=== PATIENT | female | born 1990 | race Caucasian/White ===

== ENCOUNTER 2020-08-01 16:35 | Observation (INO) | payer OTHER ==
[~2020-08-01] VITALS: Ht 154.9 cm; Wt 88.9 kg
[2020-08-01] MEDS ORDERED: PRETAB PO (17:28)
[2020-08-01] MEDS ORDERED: FERR-212 PO (17:28)
[2020-08-01 17:29] VITALS: BP 111/66
== END 2020-08-01 18:00 | disposition home or self-care (01) ==
LOC: MLD 16:35
PROVIDERS: ADMIT Obstetrics & Gynecology; ATTEND Obstetrics & Gynecology
DX: O21.2 Late vomiting of pregnancy (principal); O26.893 Other specified pregnancy related conditions, third trimester; R10.9 Unspecified abdominal pain; H53.8 Other visual disturbances; Z3A.30 30 weeks gestation of pregnancy
CPT/HCPCS: 59025; 81000; G0378

== ENCOUNTER 2020-08-28 13:40 | Observation (INO) | payer OTHER ==
[~2020-08-28] VITALS: Ht 160 cm; Wt 90.7 kg
[~2020-08-28 13:40] MED LIST: FERR-212 PO; PRETAB PO
[2020-08-28] MEDS ORDERED: TERBUTALINE 1 MG/ML VIAL SUBQ SCH (14:20)
[2020-08-28] MEDS ORDERED: LACTATED RINGERS 500 ML IV SCH (14:20)
[2020-08-28] MEDS: LACTATED RINGERS 1,000 ML IV SCH ×2 (14:31→16:15)
[2020-08-28] MEDS ORDERED: BETAMETH ACET/BETAMETH NA PH 30 MG/5 ML VIAL IM SCH (14:40)
[2020-08-28] MEDS ORDERED: BETAMETH ACET/BETAMETH NA PH 30 MG/5 ML VIAL IM ONE (14:41)
[2020-08-28] MEDS ORDERED: PROMETHAZINE 25 MG/ML VIAL IM PRN (18:00)
[2020-08-28] MEDS ORDERED: NALBUPHINE 10 MG/ML AMP IVP PRN (18:00)
[2020-08-28 18:18] VITALS: BP 129/82
[2020-08-28] MEDS ORDERED: ACETAMINOPHEN 325 MG TAB PO PRN (21:05)
== END 2020-08-28 22:13 | disposition home or self-care (01) ==
LOC: MLD 13:40
PROVIDERS: ADMIT Obstetrics & Gynecology; ATTEND Obstetrics & Gynecology
DX: O47.02 False labor before 37 completed weeks of gestation, second trimester (principal); Z3A.35 35 weeks gestation of pregnancy
CPT/HCPCS: 96361; 96372; 96374; G0378; J0702; J2300; J2550; 59025

== ENCOUNTER 2020-08-29 15:41 | Observation (INO) | payer OTHER, SELFPAY ==
[~2020-08-29] VITALS: Ht 160 cm; Wt 91.2 kg
[2020-08-29 16:22] VITALS: BP 126/76
[2020-08-29] MEDS ORDERED: BETAMETH ACET/BETAMETH NA PH 30 MG/5 ML VIAL IM SCH (16:30)
== END 2020-08-29 17:15 | disposition home or self-care (01) ==
LOC: MLD 15:41
PROVIDERS: ADMIT Obstetrics & Gynecology; ATTEND Obstetrics & Gynecology
DX: O47.03 False labor before 37 completed weeks of gestation, third trimester (principal); Z3A.35 35 weeks gestation of pregnancy
CPT/HCPCS: 59025; 81000; 96372; G0378; J0702

== ENCOUNTER 2020-08-30 17:05 | Observation (INO) | payer OTHER ==
[~2020-08-30] VITALS: Ht 157.5 cm; Wt 91.6 kg
[2020-08-30 17:50] VITALS: BP 115/66
[2020-08-30] MEDS ORDERED: MORPHINE SULFATE 4 MG/ML SYR IVP PRN (19:00)
[2020-08-30] MEDS ORDERED: ONDANSETRON 4 MG/2 ML VIAL IVP PRN (19:00)
[2020-08-30] MEDS ORDERED: LACTATED RINGERS 1,000 ML IV SCH (19:00)
[2020-08-30] MEDS ORDERED: TERBUTALINE 1 MG/ML VIAL SUBQ SCH (19:05)
[2020-08-30] MEDS ORDERED: TERBUTALINE 1 MG/ML VIAL SUBQ ONE (20:05)
[2020-08-31] MEDS ORDERED: CITRIC ACID/SODIUM CITRATE 30 ML UDC ONE (00:33)
== END 2020-08-31 01:10 | disposition home or self-care (01) ==
LOC: MLD 17:05
PROVIDERS: ADMIT Obstetrics & Gynecology; ATTEND Obstetrics & Gynecology
DX: O26.893 Other specified pregnancy related conditions, third trimester (principal); R10.9 Unspecified abdominal pain; Z20.822 Contact with and (suspected) exposure to COVID-19; Z3A.36 36 weeks gestation of pregnancy
CPT/HCPCS: 59025; 76815; 81000; 87426; 96361; 96372; 96374; G0378; J2405; J3105

== ENCOUNTER 2020-09-03 23:24 | Observation (INO) | payer OTHER, SELFPAY ==
[~2020-09-03] VITALS: Ht 157.5 cm; Wt 91.6 kg
[2020-09-04] MEDS ORDERED: LACTATED RINGERS 1,000 ML IV SCH (00:40)
[2020-09-04] MEDS ORDERED: TERBUTALINE 1 MG/ML VIAL SUBQ SCH (00:40)
[2020-09-04] MEDS ORDERED: ZOLPIDEM 5 MG TAB PO SCH (00:40)
[2020-09-04] MEDS ORDERED: TERBUTALINE 1 MG/ML VIAL SUBQ ONE (00:49)
[2020-09-04] MEDS ORDERED: ZOLPIDEM 5 MG TAB ONE (00:56)
[2020-09-04] MEDS ORDERED: ACETAMINOPHEN 325 MG TAB PO PRN (01:10)
[2020-09-04] MEDS ORDERED: ACETAMINOPHEN 325 MG TAB ONE ×2 (01:11→01:12)
== END 2020-09-04 02:05 | disposition home or self-care (01) ==
LOC: MLD 23:24
PROVIDERS: ADMIT Obstetrics & Gynecology; ATTEND Obstetrics & Gynecology
DX: O26.893 Other specified pregnancy related conditions, third trimester (principal); R10.9 Unspecified abdominal pain; Z3A.36 36 weeks gestation of pregnancy
CPT/HCPCS: 59025; 96372; G0378; J3105

== ENCOUNTER 2020-09-10 10:10 | Inpatient (IN) | payer OTHER, SELFPAY ==
[~2020-09-10] VITALS: Ht 154.9 cm; Wt 97.5 kg
[2020-09-10] MEDS ORDERED: LACTATED RINGERS 1,000 ML IV SCH (10:30)
[2020-09-10] MEDS ORDERED: CARBOPROST 250 MCG/ML AMP IM PRN (10:30)
[2020-09-10] MEDS ORDERED: AMPICILLIN 2,000 MG in NACL 0.9% MINI-BAG PLUS 100 ML IV SCH (10:30)
[2020-09-10] MEDS ORDERED: METHYLERGONOVINE 0.2 MG/ML AMP IM PRN ×2 (10:30→12:45)
[2020-09-10] MEDS ORDERED: NALBUPHINE 10 MG/ML AMP IVP PRN (10:30)
[2020-09-10 11:00] VITALS: BP 135/86
[2020-09-10] MEDS ORDERED: OXYTOCIN 20 UNITS in LACTATED RINGERS 1,000 ML IV SCH (11:00)
[2020-09-10 11:26] LABS: BASOPHILS # (AUTO) 0.1 K/uL (0.00-0.22); BASOPHILS % (AUTO) 0.4 % (0.0-2.0); EOSINOPHILS # (AUTO) 0.1 K/uL (0-0.4); EOSINOPHILS % (AUTO) 0.4 % (0.0-4.0); HEMATOCRIT 35.4 % (36-48); HEMOGLOBIN 11.5 g/dL (12.0-16.0); LYMPHOCYTES # (AUTO) 2.3 K/uL (2.5-16.5); LYMPHOCYTES % (AUTO) 11.4 % (20.5-51.1); MEAN CORPUSCULAR HEMOGLOBIN 28 pg (27-31); MEAN CORPUSCULAR HGB CONC 32 g/dL (33-37); MONOCYTES # (AUTO) 0.8 K/uL (0.8-1.0); MONOCYTES % (AUTO) 3.9 % (1.7-9.3); NEUTROPHILS # (AUTO) 16.5 K/uL (1.8-7.7); NEUTROPHILS % (AUTO) 83.9 % (42.2-75.2); PLATELET COUNT (AUTO) 227 K/uL (140-450); RED BLOOD CELL COUNT(AUTO) 4.16 MIL/uL (4.20-5.40); RED CELL DISTRIBUTION WIDTH 14.5 % (11.6-13.7); WHITE BLOOD COUNT (AUTO) 19.7 K/uL (4.8-10.8)
[2020-09-10 11:44] LABS: APPEARANCE,URINE CLOUDY (CLEAR); BILIRUBIN,URINE NEGATIVE (NEGATIVE); BLOOD, URINE TRACE-I (NEGATIVE); COLOR,URINE YELLOW (YELLOW); LEUKOCYTE ESTERASE ,URINE 1+ (NEGATIVE); NITRITE, URINE POSITIVE (NEGATIVE); UGLUCOSE NEGATIVE (NEGATIVE)
[2020-09-10] MEDS ORDERED: AMPICILLIN 2,000 MG VIAL ONE (12:07)
[2020-09-10] MEDS ORDERED: OXYTOCIN 20 UNITS/LR PREMIX 1,000 ML IV ONE (12:27)
[2020-09-10] MEDS ORDERED: BENZOCAINE/MENTHOL 20%-0.5% 60 GM CAN TP PRN (12:45)
[2020-09-10] MEDS ORDERED: OXYTOCIN 10 UNITS/ML VIAL IM PRN (12:45)
[2020-09-10] MEDS ORDERED: oxyCODONE/APAP 5/325 MG 1 TAB TAB PO PRN ×2 (12:45)
[2020-09-10] MEDS ORDERED: IBUPROFEN 800 MG TAB PO PRN (12:45)
[2020-09-10] MEDS ORDERED: METHYLERGONOVINE 0.2 MG TAB PO PRN (12:45)
[2020-09-10] MEDS ORDERED: TEMAZEPAM 15 MG CAP PO PRN (12:45)
[2020-09-10 12:54] LABS: RBC,URINE 0-5 /HPF (0-5)
[2020-09-10 12:55] LABS: URINE AMORPHOUS URATE 1+ /HPF (None Seen)
[2020-09-10 13:14] LABS: BARBITURATE, URINE NEGATIVE ng/ml (NEG <=200); BENZODIAZEPINE, URINE NEGATIVE ng/mL (NEG <=200); CANNABINOID, URINE NEGATIVE ng/mL (NEG <=50); COCAINE, URINE NEGATIVE ng/mL (NEG <=300); OPIATE, URINE NEGATIVE ng/mL (NEG <=2000); PHENCYCLIDINE SCREEN,URINE NEGATIVE ng/mL (NEG <=25)
[2020-09-10] MEDS ORDERED: DOCUSATE SOD/SENNA 50/8.6 MG 1 TAB PO SCH (21:00)
[2020-09-11 05:21] LABS: HEMATOCRIT 32.3 % (36-48); HEMOGLOBIN 10.6 g/dL (12.0-16.0)
--- NOTE | 2020-09-11 07:21 | NUR ---
PATIENT HAS BEEN SCREENED AND CATEGORIZED LOW NUTRITION RISK. PATIENT WILL BE SEEN WITHIN 7 DAYS OF ADMISSION. 09/17/20 XOCHILT GASCA MS, RDN
[2020-09-12 13:29] LABS: RAPID PLASMA REAGIN NON-REACTIVE (Non Reactiv)
== END 2020-09-12 17:00 | disposition home or self-care (01) | DRG 560 ==
LOC: MLD 10:10 → MFCC 14:40
PROVIDERS: ADMIT Obstetrics & Gynecology; ATTEND Obstetrics & Gynecology
PROC: 10E0XZZ Delivery of Products of Conception, External Approach (ICD-10-PCS; principal; 2020-09-10)
DX: O42.02 Full-term premature rupture of membranes, onset of labor within 24 hours of rupture (principal); Z20.822 Contact with and (suspected) exposure to COVID-19; Z37.0 Single live birth; Z3A.37 37 weeks gestation of pregnancy
CPT/HCPCS: 36415; 80305; 81001; 85018; 85025; 86592; 86762; 86886; 86900; 86901; 87086; 87340; J0290; J2300; J2590